=== PATIENT | female | born 1965 | race African-American/Black ===

== ENCOUNTER 2016-09-22 03:26 | Emergency (ER) | payer OTHER ==
[2016-09-22 03:54] VITALS: BP 122/76; PULSE 53; TEMP 97.8; BMI 39.5
--- NOTE | 2016-09-22 03:58 | PDOC ---
*Physical Exam - Vital Signs Last Vital Signs Temp Pulse Resp BP Pulse Ox 97.8 F 53 L 16 122/76 100 09/22/16 03:49 09/22/16 03:49 09/22/16 03:49 09/22/16 03:49 09/22/16 03:49 Medical Decision Making - Medical Decision Making 09/22/16 03:58 agree with care from HIM[facility] Calderon *DC/Admit/Observation/Transfer Diagnosis at time of Disposition: Chronic back pain - Discharge Dispostion Condition at time of disposition: Stable - Prescriptions Prescriptions: Oxycodone HCl/Acetaminophen [Percocet 5-325 mg Tablet] 1 tab PO Q6H #20 tablet MDD 4 - Referrals Referrals: Antionette Marie [Primary Care Provider] - Jc Schilling MD [Staff Physician] - Elfego Rose MD [Staff Physician] - - Patient Instructions Printed Discharge Instructions: DI for Herniated Disc Additional Instructions: Rest Take Tylenol or Motrin as needed for mild pain Percocet as needed for severe pain but use it sparingly Return back to the emergency department for severe/persistent or worsening symptoms
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
[2016-09-22] MEDS ORDERED: OXYCODONE/APAP 5/325MG COMBO TABLET PO ONE (04:15)
[2016-09-22] MEDS ORDERED: OXYCODONE/APAP 5/325MG COMBO TABLET ONE (04:18)
== END 2016-09-22 04:30 | disposition home or self-care (01) ==
LOC: JER 03:26
DX: M54.5 Low back pain (principal); G89.29 Other chronic pain
CPT/HCPCS: 99281-25

== ENCOUNTER 2018-03-18 14:20 | Emergency (ER) | payer OTHER ==
[2018-03-18 14:29] VITALS: BP 143/88; PULSE 105; TEMP 97.7; BMI 33.1
--- NOTE | 2018-03-18 14:52 | PDOC ---
History of Present Illness - General Chief Complaint: Pain Stated Complaint: BACK AND SHOULDER PAIN Time Seen by Provider: 03/18/18 14:38 History Source: Patient Exam Limitations: No Limitations - History of Present Illness Initial Comments: 03/18/18 15:01 Patient reports exacerbation of chronic right shoulder and lower back pain. Patient reports history of irregular heart beat, bilateral shoulder, bilateral knee and bilateral ankle surgeries. Denies recent injuries or falls. States seen by pain management doctor yesterday who wrote her percocet 10 but sent it to [place], also presented to this ed last night but did not stay because they put her in a hallway bed. Requesting percocet because her medication " did not go through" at [facility] when she asked doctor to correct location of medication and she is not getting through to doctor's office. Occurred: reports: yesterday Severity: reports: mild Pain Location: reports: back, upper extremity Method of Injury: Yes: other (chronic issue) Modifying Factors: improves with: pain medication Loss of Consciousness: no loss of consciousness Associated Symptoms (Fall): denies symptoms Past History - Travel Traveled outside of the country in the last 30 days: No - Past Medical History Allergies/Adverse Reactions: Allergies Allergy/AdvReac Type Severity Reaction Status Date / Time naproxen [From Naprosyn] Allergy Severe STOMACH Verified 03/18/18 14:28 PAIN Penicillins Allergy Mild Rash Verified 03/18/18 14:28 ibuprofen Allergy Verified 03/18/18 14:28 TOMATO Allergy Mild Vomiting Uncoded 03/18/18 14:28 Home Medications: Ambulatory Orders Acetaminophen 1,000 gm PO QID #20 tab 03/18/18 Anemia: No Asthma: Yes Cancer: No Cardiac Disorders: Yes (IRREGULAR HEART BEAT) CVA: No COPD: Yes CHF: No Dementia: No Diabetes: No 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 SHOULDER ROATED CUFF SURGERY. S/P RT ANKLE) - Immunization History Td Vaccination: Yes Immunization Up to Date: Yes - Suicide/Smoking/Psychosocial Hx Smoking Status: No Smoking History: Current every day smoker Have you smoked in the past 12 months: No Number of Cigarettes Smoked Daily: 5 Information on smoking cessation initiated: No Hx Alcohol Use: No Drug/Substance Use Hx: No Substance Use Type: Alcohol Hx Substance Use Treatment: No Trauma Specific PMHX - Complaint Specific PMHX Back Injury: No Complaint Specific PMHX Comments:: 03/18/18 15:10 patient reports past surgical history of bilateral shoulder, knees and ankles Review of Systems - Review of Systems Able to Perform ROS?: Yes Is the patient limited Estonian proficient: No Constitutional: No: Chills HEENTM: No: Nose Pain, Nose Congestion, Throat Swelling Respiratory: No: Orthopnea, SOB at Rest Cardiac (ROS): No: Palpitations ABD/GI: No: Blood Streaked Bowels, Poor Appetite, Vomiting Musculoskeletal: Yes: Joint Pain, Muscle Pain Integumentary: No: Bruising, Erythema, Flushing Neurological: No: Headache *Physical Exam - Vital Signs Last Vital Signs Temp Pulse Resp BP Pulse Ox 97.7 F 105 H 18 143/88 100 03/18/18 14:26 03/18/18 14:26 03/18/18 14:26 03/18/18 14:26 03/18/18 14:26 - Physical Exam General Appearance: Yes: Appropriately Dressed. No: Apparent Distress HEENT: positive: TMs Normal, Pharynx Normal Neck: positive: Supple. negative: Lymphadenopathy (R), Lymphadenopathy (L) Respiratory/Chest: positive: Lungs Clear, Normal Breath Sounds Cardiovascular: positive: Regular Rhythm, Regular Rate, S1, S2 Musculoskeletal: negative: CVA Tenderness, Vertebral Tenderness Extremity: positive: Normal Capillary Refill, Normal Range of Motion. negative : Inflammation Neurologic: positive: psychotherapist counselor II-XII NML intact, Fully Oriented Moderate Sedation - Procedure Monitoring Vital Signs: Procedure Monitoring Vital Signs Temperature 97.7 F 03/18/18 14:26 Pulse Rate 105 H 03/18/18 14:26 Respiratory Rate 18 03/18/18 14:26 Blood Pressure 143/88 03/18/18 14:26 O2 Sat by Pulse Oximetry (%) 100 03/18/18 14:26 Medical Decision Making - Medical Decision Making 03/18/18 15:12 52 year old female with chronic pain present requesting percocet 10 due to complications with prescription written by pain management doctor yesterday patient given percocet 1 tab in ed offered acetaminophen extra strength for breakthrough pain until medication issues are cleared sales producer reviewed: no information available for [place] Rx : extra strength acetaminophen referred back to painting manager Dr. Lennon *DC/Admit/Observation/Transfer Diagnosis at time of Disposition: Chronic pain Qualifiers: Chronic pain type: other chronic pain Qualified Code(s): G89.29 - Other chronic pain - Discharge Dispostion Disposition: HOME Condition at time of disposition: Good Decision to Admit order: No - Prescriptions Prescriptions: Acetaminophen 1,000 gm PO QID #20 tab - Referrals Referrals: Antionette Marie [Primary Care Provider] - 2 Days - Patient Instructions Printed Discharge Instructions: Low Back Pain, DI for Low Back Pain Additional Instructions: Please call primary physician or pain management physician for further evaluation of pain May return to ed for worsening pain, numbness or tingling or bowel or bladder dysfunction - Post Discharge Activity
== END 2018-03-18 15:19 | disposition home or self-care (01) ==
LOC: JERFT 14:20 → JER 14:20 → JERFT 15:19
DX: M54.5 Low back pain (principal); G89.29 Other chronic pain
CPT/HCPCS: 99281-25